=== PATIENT | female | born 1980 | race Caucasian/White ===

== ENCOUNTER 2017-08-23 02:48 | Day surgery (SDC) | payer BC ==
[2013-10-31 15:11] VITALS: Ht 172.7 cm; Wt 99.8 kg
[~2017-08-23] VITALS: Ht 172.7 cm; Wt 99.8 kg
[~2017-08-23 02:48] MED LIST: ACE3 PO; ACET-1718 PO; ACET-3017 PO; ASPI81TA94 PO; DOC240 PO; IBU600 PO; IBUP800T37 PO; METH0.2T5 PO; PNV1TABL92 PO; PREN-127 PO; PROM50TA23 PO
[2017-08-23 10:32] LABS: PLATELET COUNT, AUTOMATED 247 K/uL (150-450)
[2017-08-23 11:13] VITALS: BP 139/85
[2017-08-23] MEDS ORDERED: fentaNYL CITR 100 MCG/2 ML AMP ONE ×2 (11:30→14:10)
[2017-08-23] MEDS ORDERED: PROPOFOL EMUL(*) 10MG/ML 20 ML 60 ML ONE (11:34)
[2017-08-23] MEDS ORDERED: KETOROLAC 30 MG/ML VIAL ONE (11:34)
[2017-08-23] MEDS ORDERED: LIDOCAINE MPF 1% 5 ML VIAL ONE (11:34)
[2017-08-23] MEDS ORDERED: DEXAMETHASONE SOD PHOS 10MG/ML ONE (11:34)
[2017-08-23] MEDS ORDERED: HALOPERIDOL LACT 5 MG/ML VIAL IM ONE (11:34)
[2017-08-23] MEDS ORDERED: SUGAMMADEX SOD 200 MG/2 ML SDV ONE (11:38)
[2017-08-23] MEDS ORDERED: FAMOTIDINE 20 MG TAB PO ONE (12:20)
[2017-08-23] MEDS ORDERED: NORMOSOL R SOLN(*) 1000 ML BAG 1,000 ML IV PRN (12:20)
[2017-08-23] MEDS ORDERED: LIDOCAINE/SOD BICARB 8.4% SYR ID ONE (12:20)
[2017-08-23] MEDS ORDERED: MIDAZOLAM 2 MG/2 ML VIAL IVP PRN (12:20)
[2017-08-23] MEDS ORDERED: NS 0.9% 20 ML SDV 20 ML ONE (12:56)
[2017-08-23] MEDS ORDERED: METHYLERGONOVINE MAL 0.2MG/ML ONE (12:56)
[2017-08-23] MEDS ORDERED: KETAMINE HCL 200 MG/20 ML MDV ONE (13:15)
--- NOTE | 2017-08-23 13:30 | RADIOLOGY IMAGING REPORT ---
FACILITY: [facility] PATIENT NAME: Melanie Bee : 1980 MR: [id number] V: [id number] EXAM DATE: ORDERING PHYSICIAN: JEFE IVY TECHNOLOGIST: Location: [facility] Patient: Melanie Bee : 1980 Visit/Account:[id number] Date of Sevice: 08/23/2017 OB <14 WEEKS HISTORY: Confirm demise. Transabdominal ultrasound only ADDITIONAL HISTORY: None COMPARISON: None. FINDINGS: There is an intrauterine fetus measuring 6.5 cm in length which would translate to an estimated age o f 12 weeks and six days. There is no detectable heart rate. There is oligohydramnios with minimal f luid. Maternal ovaries: 2.4 cm small cyst or corpus luteum in the left ovary. Ovaries otherwise unremarkab le. Normal vascular flow seen in both ovaries. Adnexa: Grossly unremarkable. Free pelvic fluid: None. IMPRESSION: Findings consistent with intrauterine demise which was suspected clinically. Report Dictated By: Kit Chowdhury MD at 08/23/2017 1:18 PM Report E-Signed By: Kit Chowdhury MD at 08/23/2017 1:24 PM WSN:[id number]
[2017-08-23] MEDS ORDERED: LR(*) 1000 ML BAG 1,000 ML IV ONE (13:39)
[2017-08-23] MEDS ORDERED: APAP/HYDROCODONE 325/5 TAB PO PRN ×2 (13:40→14:55)
[2017-08-23] MEDS ORDERED: LOR5/325 PO (13:43)
[2017-08-23] MEDS ORDERED: DOXY-252 PO (13:43)
[2017-08-23] MEDS ORDERED: METH0.2T6 PO (13:43)
--- NOTE | 2017-08-23 13:44 | Short(Outpt) Discharge Summary ---
Discharge Summary Reason for Hosp/Final Diag: (1) Missed Status: Acute Hospital Course & Plan: s/p suction D&C Departure Discharge to: Home, Self Care Discharge Instructions Home Meds Active Scripts Doxycycline Monohydrate (DOXYCYCLINE MONOHYDRATE) 100 Mg Capsule, 100 MG PO BID , #10 CAPSULE 0 Refills Prov:MIN MARCELO MD 08/23/17 Methylergonovine Mal 0.2 Mg Tab (METHERGINE 0.2 MG TAB) 0.2 Mg Tablet, 0.2 MG PO Q12H, #4 TAB 0 Refills Prov:MIN MARCELO MD 08/23/17 Hydrocodone Bit/Acetaminophen (HYDROCODON-ACETAMINOPHEN 5-325) 1 Each Tablet, 1 EACH PO Q4-6H Y for PAIN, #10 TAB 0 Refills Prov:MIN MARCELO MD 08/23/17 Reported Medications Aspirin (ASPIRIN) 81 Mg Tab.chew, 81 MG PO QDAY, TAB.CHEW 08/22/17 Vits W-Ca,Fe,Fa(<1MG) ( VITAMINS) 1 Each Tablet, 1 EACH PO DAILY CONTINUE TAKING LONG YOU ARE OR AT LEAST 6 WEEKS 10/31/13 Discontinued Reported Medications Promethazine Hcl (PROMETHAZINE HCL) 50 Mg Tablet, PO Q8H Y for NAUSEA, TAB 05/05/15 Discontinued Scripts Methylergonovine Maleate (METHYLERGONOVINE MALEATE) 0.2 Mg Tablet, 1 TAB PO Q6H , #6 TAB Prov:YUMIKO GALLOWAY MD 05/06/15 Ibuprofen (IBUPROFEN) 800 Mg Tablet, 1 TAB PO Q8H, #30 TAB Take with food every 8 hours. 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
--- NOTE | 2017-08-23 13:50 | Post Operative Note ---
Operative Note - [facility] Operative Day Date: Aug 23, 2017 Time: 13:44 Physicians Surgeon: Fozia Anesthesia: Gen LMA Diagnosis Pre-Op Diagnosis: Missed AB at 13 weeks Post-Op Diagnosis: same Procedure Findings: sound 13 cm Procedure(s): Suction D&C Specimen Removed:(Maybe N/A): POC [id number] Complications: none Fluids Fluids: 1300 ml Estimated Blood Loss: 300 ml Dictated Date OP Note Dictated: Aug 23, 2017 Time OP Note Dictated: 13:45 Copies to: JEFE IVY MD, TRAVIS MD Aug 23, 2017 13:50
[2017-08-23] MEDS ORDERED: APAP/HYDROCODONE 325/5 TAB ONE (14:32)
[2017-08-23 14:45] VITALS: BP 115/83
[2017-08-23 15:26] VITALS: BP 107/75
[2017-08-23 15:37] VITALS: BP 115/94
--- NOTE | 2017-08-23 18:53 | OPERATIVE REPORT 1 ---
EVENT DATE: August 23, 2017 SURGEON: Min Marcelo MD ANESTHESIOLOGIST: Bryant Adames MD ANESTHESIA: General LMA. PREOPERATIVE DIAGNOSIS Missed miscarriage at 13 weeks. POSTOPERATIVE DIAGNOSIS Missed miscarriage at 13 weeks. PROCEDURE PERFORMED Suction dilation and curettage. ESTIMATED BLOOD LOSS 300 mL FLUIDS Crystalloid 1300 mL IV. URINE OUTPUT Not measured. INDICATIONS A 13-week intrauterine with missed AB diagnosed on ultrasound in [place] on Monday and again confirmed today. FINDINGS Enlarged uterus, 13 cm sounded depth. Products of conception consistent with missed AB. PROCEDURE IN DETAIL The patient was brought to the operating room with a working IV and placed in the dorsal supine position. She was placed under general LMA anesthesia and moved to the dorsal lithotomy position. She was prepped and draped in the usual sterile fashion. A weighted speculum was placed in the vagina. The cervix was grasped on the anterior lip with a single-toothed tenaculum. It was carefully sounded to a depth of 13 cm anteverted, and a size 12 curved suction Vacurette was selected. The cervix was dilated to a size 13 Hegar dilator. The curved Vacurette was then connected in tubing to the suction device at a pressure of approximately 40 mmHg. It was then passed through the cervix into the uterus. Suction was applied, and it was carefully rotated about while it was withdrawn. A large amount of products of conception and liquid were evacuated. An additional pass revealed the same thing. A third pass revealed less tissue removed at this point, and some was extruding from the cervix. Therefore, the polyp forceps were used to grasp the membranes and tissue and remove them. A sharp Bovine curette was used curettage all four quadrants of the uterus. A gritty texture was not immediately palpable, so an additional pass was then made with the Vacurette. Additional products of conception were removed, and this time upon removing the Vacurette, a significant amount of tissue presented at the os. This was grasped with the polyp forceps, and a large amount of placental-like tissue was removed. The sharp Bovine curette was again passed into the uterus, and this time a gritty texture was palpable throughout the endometrial cavity. One additional pass with the Vacurette removed a scant amount of tissue. Bleeding was light; therefore, the procedure was terminated. All instruments were removed from the vagina. The patient remained stable throughout. The legs were brought back to the supine position. She was taken to recovery in stable condition. CHARLINE
== END 2017-08-23 14:45 | disposition home or self-care (01) ==
LOC: OR 02:48
PROVIDERS: ATTEND Obstetrics & Gynecology
DX: O02.1 Missed abortion (principal)
CPT/HCPCS: 36415; 59820; 76801; 85025; 88305; J1100; J1630; J1885; J2001; J2210; J2250; J2704; J3010; J3490; J7050; 76817